=== PATIENT | male | born 1985 | race Caucasian/White ===

== ENCOUNTER 2018-05-27 12:39 | Emergency (ER) | payer MEDICAID ==
[~2018-05-27] VITALS: Ht 167.6 cm; Wt 73.0 kg
[2018-05-27] MEDS ORDERED: DEPAKOTE500 MG PO (12:52)
[2018-05-27] MEDS ORDERED: FLONASE 0.05%50 MCG NASAL (12:53)
[2018-05-27] MEDS ORDERED: LITHIUM CARBON300 M3 PO (12:53)
[2018-05-27] MEDS ORDERED: DIVALPROEX SOD125 M1 PO (12:53)
[2018-05-27] MEDS ORDERED: CLARITIN10 MG PO (12:53)
[2018-05-27] MEDS ORDERED: FLOMAX0.4 MG PO (12:54)
[2018-05-27] MEDS ORDERED: OLANZAPINE20 MG PO (12:54)
[2018-05-27] MEDS ORDERED: OLANZAPINE5 MG PO (12:54)
[2018-05-27 13:27] LABS: ABSOLUTE EOSINOPHILS 0.1 thou/uL (0.0-0.7); ABSOLUTE LYMPHOCYTES 1.6 thou/uL (0.8-5.3); ABSOLUTE MONOCYTES 0.7 thou/uL (0.0-1.2); ABSOLUTE NEUTROPHILS 7.7 thou/uL (1.6-8.1); BASOPHILS 0.3 %; EOSINOPHILS 1.3 %; HEMATOCRIT 39.3 % (42.0-52.0); LYMPHOCYTES 15.9 %; MCH 30.2 pg (26.0-34.0); MCHC 33.1 g/dL (28.0-37.0); MCV 91.4 fL (80.0-100.0); MONOCYTES 6.9 %; MPV 7.8 fl. (7.2-11.1); NUCLEATED RBCS 0 /100WBC; PLATELET COUNT* 303 thou/uL (150-400); POLYS 75.6 %; WBC 10.1 thou/uL (4.0-11.0)
[2018-05-27 13:39] LABS: ALBUMIN 3.4 g/dL (3.4-5.0); CALCIUM 9.8 mg/dL (8.5-10.1); CREATININE 1.4 mg/dL (0.6-1.3); POTASSIUM 4.4 mmol/L (3.5-5.1); TOTAL BILIRUBIN 0.3 mg/dL (<0.1-1.0); TOTAL PROTEIN 8.1 g/dL (6.4-8.2)
[2018-05-27 13:58] LABS: URINE BILIRUBIN NEGATIVE (Negative); URINE BLOOD 3+ (Negative); URINE CLARITY CLEAR; URINE COLOR YELLOW; URINE GLUCOSE-RANDOM NEGATIVE (Negative); URINE KETONES NEGATIVE (Negative); URINE NITRITE-REFLEX NEGATIVE (Negative); URINE PROTEIN 2+ (Negative); URINE UROBILINOGEN 0.2 E.U./dl (0.2-1.0)
[2018-05-27 13:59] LABS: URINE LEUKOCYTES-REFLEX 3+ (Negative)
[2018-05-27 14:04] LABS: SQUAMOUS >10 Many /LPF (0-3); URINE RBC >20 Many /HPF (0-2); URINE WBC-REFLEX >25 Many /HPF (0-5)
[2018-05-27 14:05] LABS: BACTERIA-REFLEX >30 Many /HPF (None Seen); CASTS None Seen /LPF (None Seen); CRYSTALS None Seen /LPF (None Seen)
[2018-05-27] MEDS ORDERED: LEVAQUIN 500 M500 M3 PO (16:47)
[2018-05-27] MEDS ORDERED: ULTRAM 50MG TAB50 MG PO (16:47)
[2018-05-27] MEDS ORDERED: IBUPROFEN 800800 MG PO (16:47)
[2018-05-27 17:42] VITALS: BP 134/89
== END 2018-05-27 17:30 | disposition home or self-care (01) ==
LOC: M.ERS 12:39
PROVIDERS: Personal Emergency Response Attendant
DX: N12 Tubulo-interstitial nephritis, not specified as acute or chronic (principal)

== ENCOUNTER 2018-06-01 11:28 | Emergency (ER) | payer MEDICAID ==
[~2018-06-01] VITALS: Ht 170.2 cm; Wt 67.1 kg
[~2018-06-01 11:28] MED LIST: CLARITIN10 MG PO; DEPAKOTE500 MG PO; DIVALPROEX SOD125 M1 PO; FLOMAX0.4 MG PO; FLONASE 0.05%50 MCG NASAL; IBUPROFEN 800800 MG PO; LEVAQUIN 500 M500 M3 PO; LITHIUM CARBON300 M3 PO; OLANZAPINE20 MG PO; OLANZAPINE5 MG PO; ULTRAM 50MG TAB50 MG PO
[2018-06-01 11:41] VITALS: BP 118/79
== END 2018-06-01 11:50 | disposition home or self-care (01) ==
LOC: M.ERS 11:28
DX: T83.098A Other mechanical complication of other urinary catheter, initial encounter (principal); F90.9 Attention-deficit hyperactivity disorder, unspecified type

== ENCOUNTER 2018-06-01 17:07 | Emergency (ER) | payer MEDICAID ==
[~2018-06-01] VITALS: Ht 170.2 cm; Wt 68.0 kg
[2018-06-01 18:29] VITALS: BP 146/91
== END 2018-06-01 18:30 | disposition home or self-care (01) ==
LOC: M.ERS 17:07
DX: R33.9 Retention of urine, unspecified (principal); F90.9 Attention-deficit hyperactivity disorder, unspecified type

== ENCOUNTER 2018-06-14 17:55 | Emergency (ER) | payer MEDICAID ==
[~2018-06-14] VITALS: Ht 175.3 cm; Wt 73.0 kg
[2018-06-14 18:10] LABS: URINE BILIRUBIN NEGATIVE (Negative); URINE BLOOD TRACE (Negative); URINE CLARITY CLEAR; URINE COLOR YELLOW; URINE GLUCOSE-RANDOM NEGATIVE (Negative); URINE KETONES NEGATIVE (Negative); URINE LEUKOCYTES-REFLEX NEGATIVE (Negative); URINE NITRITE-REFLEX NEGATIVE (Negative); URINE PROTEIN NEGATIVE (Negative); URINE SPECIFIC GRAVITY <= 1.005 (1.005-1.030); URINE UROBILINOGEN 0.2 E.U./dl (0.2-1.0)
[2018-06-14 18:51] LABS: ABSOLUTE EOSINOPHILS 0.2 thou/uL (0.0-0.7); ABSOLUTE LYMPHOCYTES 2.2 thou/uL (0.8-5.3); ABSOLUTE MONOCYTES 0.4 thou/uL (0.0-1.2); ABSOLUTE NEUTROPHILS 4.4 thou/uL (1.6-8.1); BASOPHILS 0.4 %; EOSINOPHILS 2.9 %; HEMATOCRIT 38.7 % (42.0-52.0); HEMOGLOBIN 12.9 gm/dL (14.0-18.0); MCH 30.6 pg (26.0-34.0); MCHC 33.4 g/dL (28.0-37.0); MCV 91.8 fL (80.0-100.0); MONOCYTES 6.1 %; MPV 7.4 fl. (7.2-11.1); NUCLEATED RBCS 0 /100WBC; PLATELET COUNT* 267 thou/uL (150-400); POLYS 60.6 %; RBC 4.21 mil/uL (4.50-6.00); RDW-CV 13.9 % (10.5-14.5); WBC 7.2 thou/uL (4.0-11.0)
[2018-06-14 19:03] LABS: ALBUMIN 3.5 g/dL (3.4-5.0); CALCIUM 9.7 mg/dL (8.5-10.1); CREATININE 1.4 mg/dL (0.6-1.3); POTASSIUM 3.4 mmol/L (3.5-5.1); TOTAL BILIRUBIN 0.2 mg/dL (<0.1-1.0); TOTAL PROTEIN 8.1 g/dL (6.4-8.2)
[2018-06-14 20:41] VITALS: BP 141/82
== END 2018-06-14 20:41 | disposition home or self-care (01) ==
LOC: M.ERS 17:55
PROVIDERS: Physician Assistant
DX: R10.31 Right lower quadrant pain (principal); F90.9 Attention-deficit hyperactivity disorder, unspecified type

== ENCOUNTER 2018-08-16 11:49 | Emergency (ER) | payer MEDICAID ==
[~2018-08-16] VITALS: Ht 170.2 cm; Wt 64.0 kg
[2018-08-16] MEDS ORDERED: OXYBUTYNIN 5 MG5 M2 PO (12:16)
[2018-08-16] MEDS ORDERED: ZYPREXA 5 MG TAB5 M1 PO (12:16)
[2018-08-16] MEDS ORDERED: FLOMAX0.4 MG PO (12:16)
[2018-08-16] MEDS ORDERED: KEFLEX500 M1 PO (12:30)
[2018-08-16] MEDS ORDERED: BACTRIM DS TAB1 EACH PO (12:30)
[2018-08-16 12:40] VITALS: BP 131/78
== END 2018-08-16 12:46 | disposition home or self-care (01) ==
LOC: M.ERS 11:49
DX: L03.311 Cellulitis of abdominal wall (principal); G89.18 Other acute postprocedural pain; F90.9 Attention-deficit hyperactivity disorder, unspecified type

== ENCOUNTER 2018-09-02 15:08 | Emergency (ER) | payer MEDICAID ==
[~2018-09-02] VITALS: Ht 170.2 cm; Wt 65.0 kg
[~2018-09-02 15:08] MED LIST changes: +BACTRIM DS TAB1 EACH PO; +KEFLEX500 M1 PO; +OXYBUTYNIN 5 MG5 M2 PO; +ZYPREXA 5 MG TAB5 M1 PO
[2018-09-02 16:27] LABS: ABSOLUTE EOSINOPHILS 0.1 thou/uL (0.0-0.7); ABSOLUTE MONOCYTES 0.3 thou/uL (0.0-1.2); ABSOLUTE NEUTROPHILS 2.5 thou/uL (1.6-8.1); BASOPHILS 0.5 %; EOSINOPHILS 2.7 %; HEMATOCRIT 35.8 % (42.0-52.0); HEMOGLOBIN 11.8 gm/dL (14.0-18.0); LYMPHOCYTES 40.5 %; MCH 29.6 pg (26.0-34.0); MCHC 33.1 g/dL (28.0-37.0); MCV 89.4 fL (80.0-100.0); MONOCYTES 5.7 %; MPV 7.2 fl. (7.2-11.1); NUCLEATED RBCS 0 /100WBC; PLATELET COUNT* 224 thou/uL (150-400); POLYS 50.6 %
[2018-09-02 16:35] LABS: CALCIUM 9.1 mg/dL (8.5-10.1); CREATININE 1.2 mg/dL (0.6-1.3); POTASSIUM 4.5 mmol/L (3.5-5.1)
[2018-09-02 16:40] LABS: ALBUMIN 3.4 g/dL (3.4-5.0); TOTAL BILIRUBIN 0.3 mg/dL (<0.1-1.0); TOTAL PROTEIN 7.4 g/dL (6.4-8.2)
[2018-09-02 17:40] LABS: URINE BILIRUBIN NEGATIVE (Negative); URINE BLOOD 2+ (Negative); URINE CLARITY CLEAR; URINE COLOR YELLOW; URINE GLUCOSE-RANDOM NEGATIVE (Negative); URINE KETONES NEGATIVE (Negative); URINE NITRITE-REFLEX NEGATIVE (Negative); URINE PROTEIN NEGATIVE (Negative); URINE SPECIFIC GRAVITY <= 1.005 (1.005-1.030); URINE UROBILINOGEN 0.2 E.U./dl (0.2-1.0)
[2018-09-02 17:41] LABS: URINE LEUKOCYTES-REFLEX 2+ (Negative)
[2018-09-02] MEDS ORDERED: CIPRO500 MG PO (17:43)
[2018-09-02 17:46] VITALS: BP 129/81
[2018-09-02 17:54] LABS: MUCUS None Seen strn/LPF (None Seen)
[2018-09-02 17:55] LABS: SQUAMOUS NONE SEEN /LPF (0-3); URINE WBC-REFLEX 6-15 Few /HPF (0-5)
[2018-09-02 17:56] LABS: BACTERIA-REFLEX 1-9 Few /HPF (None Seen); CASTS None Seen /LPF (None Seen); CRYSTALS None Seen /LPF (None Seen); URINE RBC 0-2 Rare /HPF (0-2)
== END 2018-09-02 17:45 | disposition home or self-care (01) ==
LOC: M.ERS 15:08
PROVIDERS: Nurse Practitioner Family
DX: T83.198A Other mechanical complication of other urinary devices and implants, initial encounter (principal); N39.0 Urinary tract infection, site not specified; F90.9 Attention-deficit hyperactivity disorder, unspecified type; Y92.89 Other specified places as the place of occurrence of the external cause

== ENCOUNTER 2018-10-23 16:26 | Emergency (ER) | payer MEDICAID ==
[~2018-10-23] VITALS: Ht 177.8 cm; Wt 63.5 kg
[~2018-10-23 16:26] MED LIST changes: +CIPRO500 MG PO
[2018-10-23 16:39] VITALS: BP 150/63
[2018-10-23] MEDS ORDERED: KEFLEX500 M1 PO (16:42)
[2018-10-23] MEDS ORDERED: PHENAZOPYRIDIN200 M2 PO (16:43)
== END 2018-10-23 17:05 | disposition home or self-care (01) ==
LOC: M.ERS 16:26
DX: Z46.6 Encounter for fitting and adjustment of urinary device (principal); F90.9 Attention-deficit hyperactivity disorder, unspecified type

== ENCOUNTER 2019-05-01 15:14 | Emergency (ER) | payer MEDICAID ==
[~2019-05-01] VITALS: Ht 170.2 cm; Wt 88.5 kg
[~2019-05-01 15:14] MED LIST changes: +PHENAZOPYRIDIN200 M2 PO
[2019-05-01 16:25] LABS: URINE BILIRUBIN NEGATIVE (Negative); URINE BLOOD TRACE (Negative); URINE CLARITY CLEAR; URINE COLOR STRAW; URINE GLUCOSE-RANDOM NEGATIVE (Negative); URINE KETONES NEGATIVE (Negative); URINE LEUKOCYTES-REFLEX 2+ (Negative); URINE NITRITE-REFLEX POSITIVE (Negative); URINE PROTEIN NEGATIVE (Negative); URINE UROBILINOGEN 0.2 E.U./dl (0.2-1.0)
[2019-05-01 16:30] LABS: ABSOLUTE EOSINOPHILS 0.1 thou/uL (0.0-0.7); ABSOLUTE LYMPHOCYTES 2.6 thou/uL (0.8-5.3); ABSOLUTE MONOCYTES 0.4 thou/uL (0.0-1.2); ABSOLUTE NEUTROPHILS 3.9 thou/uL (1.6-8.1); BASOPHILS 0.2 %; EOSINOPHILS 1.8 %; HEMATOCRIT 36.2 % (42.0-52.0); LYMPHOCYTES 36.4 %; MCH 28.2 pg (26.0-34.0); MCHC 33.2 g/dL (28.0-37.0); MCV 84.9 fL (80.0-100.0); MONOCYTES 5.9 %; MPV 7.7 fl. (7.2-11.1); NUCLEATED RBCS 0 /100WBC; PLATELET COUNT* 221 thou/uL (150-400); POLYS 55.7 %; RBC 4.26 mil/uL (4.50-6.00); RDW-CV 15.3 % (10.5-14.5); WBC 7.1 thou/uL (4.0-11.0)
[2019-05-01 16:34] LABS: CALCIUM 8.5 mg/dL (8.5-10.1); POTASSIUM 3.7 mmol/L (3.5-5.1)
[2019-05-01 16:40] LABS: BACTERIA-REFLEX 1-9 Few /HPF (None Seen); CASTS None Seen /LPF (None Seen); CRYSTALS None Seen /LPF (None Seen); MUCUS None Seen strn/LPF (None Seen); SQUAMOUS NONE SEEN /LPF (0-3); URINE WBC-REFLEX 6-15 Few /HPF (0-5)
[2019-05-01 16:41] LABS: URINE RBC 0-2 Rare /HPF (0-2)
[2019-05-01 16:42] LABS: ALBUMIN 3.1 g/dL (3.4-5.0); TOTAL BILIRUBIN 0.2 mg/dL (<0.1-1.0); TOTAL PROTEIN 7.5 g/dL (6.4-8.2)
[2019-05-01] MEDS ORDERED: CIPRO500 M1 PO (19:29)
[2019-05-01] MEDS ORDERED: FLAGYL500 M1 PO (19:29)
[2019-05-01 19:43] VITALS: BP 136/101
== END 2019-05-01 19:43 | disposition home or self-care (01) ==
LOC: M.ERS 15:14
PROVIDERS: Nurse Practitioner Family
DX: K52.9 Noninfective gastroenteritis and colitis, unspecified (principal); F90.9 Attention-deficit hyperactivity disorder, unspecified type; Z79.899 Other long term (current) drug therapy